=== PATIENT | female | born 1955 | race American Indian/Alaskan Native ===

== ENCOUNTER 2017-08-31 06:44 | Day surgery (SDC) | payer MEDICAID ==
[2017-08-31] MEDS ORDERED: NACL BACTERIOSTATIC INFILTRATI ONE (08:51)
[2017-08-31] MEDS ORDERED: ANCEF/STERILE WATER 2 GM/20 ML IV NR (09:00)
--- NOTE | 2017-08-31 09:01 | Anesthesia Day of Surgery ---
Anesthesia Day of Surgery - Day of Surgery Patient Examined: Yes Patient H&P Reviewed: Yes Patient is NPO: Yes Beta Blockers: Yes
--- NOTE | 2017-08-31 09:01 | Anesthesia Consultation ---
Anesthesia Consult and Med Hx Date of service: 08/31/17 - Airway Anesthetic Teeth Evaluation: Edentulous ROM Head & Neck: Adequate Mental/Hyoid Distance: Adequate Mallampati Class: Class III Intubation Access Assessment: Possibly Difficult - Pulmonary Exam CTA: Yes - Cardiac Exam Cardiac Exam: RRR - Pre-Operative Health Status ASA Pre-Surgery Classification: ASA4 Proposed Anesthetic Plan: General - Pulmonary Hx Smoking: Yes (18 YEARS 3 CIG PER DAY) SOB: Yes (exertional. uses albuterol) Hx Sleep Apnea: No - Cardiovascular System Hx Hypertension: Yes Hx Angina: No - Central Nervous System Hx Neuromuscular Disorder: ([place] palsy @ 17 y.o) Hx Seizures: Yes (X1 2011. no meds) Hx Psychiatric Problems: Yes (anxiety/depression) - Gastrointestinal Hx Gastroesophageal Reflux Disease: Yes (well controlled) - Endocrine Hx Renal Disease: No Hx Non-Insulin Dependent Diabetes: No - Other Systems Hx Alcohol Use: Yes (SOCIAL) Hx Cancer: Yes (h/o breast cancer. s/p b/l mastectomy) Hx Obesity: Yes (morbid) - Additional Comments Anesthesia Medical History Comments: h/o HIV, HLD. Informed consent obtained
[2017-08-31] MEDS ORDERED: DILAUDID IV PRN (09:02)
[2017-08-31 09:14] LABS: Basophils # (Auto) 0.1 K/mm3 (0.0-0.1); Basophils % (Auto) 0.7 % (0.0-1.8); Eosinophils # (Auto) 0.2 K/mm3 (0.0-0.4); Eosinophils % (Auto) 2.4 % (0.0-4.3); Lymphocytes # (Auto) 2.1 K/mm3 (1.2-5.4); Lymphocytes % (Auto) 27.6 % (13.4-35.0); Mean Corpuscular HGB Conc 33 % (30-34); Mean Corpuscular Hemoglobin 29 pg (28-32); Mean Corpuscular Volume 89 fl (79-97); Monocytes # (Auto) 0.6 K/mm3 (0.0-0.8); Monocytes % (Auto) 8.4 % (0.0-7.3); Platelet Count 302 K/mm3 (140-440); Red Blood Count 3.83 M/mm3 (3.65-5.03); Red Cell Distribution Width 15.5 % (13.2-15.2)
[2017-08-31] MEDS ORDERED: DIPRIVAN 10 MG/ML IV ONE (09:20)
[2017-08-31] MEDS ORDERED: SUBLIMAZE ONE (09:21)
[2017-08-31] MEDS ORDERED: NACL 0.9% 1000 ML 1,000 ML IV SCH (10:00)
[2017-08-31] MEDS ORDERED: NEURONTIN PO NR (10:00)
[2017-08-31] MEDS ORDERED: LOPRESSOR PO SCH (10:00)
[2017-08-31] MEDS ORDERED: PEPCID IV NR (10:00)
[2017-08-31] MEDS ORDERED: NACL 0.9% IR ONE (10:45)
[2017-08-31] MEDS ORDERED: NACL 0.9% 1000 ML 1,000 ML ONE (10:53)
--- NOTE | 2017-08-31 10:54 | Discharge Summary ---
Short Stay Discharge Plan Activity: other (Limit ADDUCTION and general use of LT Arm) Weight Bearing Status: Full Weight Bearing Diet: regular Wound: remove dressing (72hrs.), other (FRANCESCO Drains to Bulb Suction) Follow up with: ODALYS RAJAN MD [Primary Care Provider] - 6 Weeks WORK,ELKIN Rodriguez JR, MD [Staff Physician] - 7 Days
--- NOTE | 2017-08-31 10:56 | Short Stay Summary ---
Short Stay Documentation Date of service: 08/31/17 - Allergies and Medications Current Medications: Allergies lisinopril Allergy (Verified 12/28/14 08:49) Swelling Home Medications Medication Instructions Recorded Confirmed Last Taken Type Albuterol Sulfate [Ventolin HFA] 2 puff IH Q4H PRN 06/09/13 12/28/14 12/28/14 05 :00 History Atenolol [Tenormin] 100 mg PO DAILY 06/09/13 12/28/14 12/28/14 05:00 History Gabapentin 300 mg PO HS 06/09/13 12/28/14 12/27/14 13:00 History Ibuprofen 800 mg PO PRN PRN 06/09/13 12/28/14 12/21/14 History NIFEdipine [Nifedipine ER] 60 mg PO DAILY 06/09/13 12/28/14 12/27/14 13:00 History Efavirenz/Emtricitab/Tenofovir 1 each PO QDAY 06/13/13 12/28/14 12/27/14 13:00 History [Atripla Tablet] Bupropion HCl [Bupropion HCl Sr] 100 mg PO DAILY 03/22/14 12/28/14 12/27/14 13: 00 History FLUoxetine HCL [Prozac] 40 mg PO QDAY 03/22/14 12/28/14 12/27/14 13:00 History Ranitidine HCl [Ranitidine] 75 mg PO BID PRN 03/22/14 12/28/14 12/27/14 13:00 History Cephalexin [Keflex] 500 mg PO Q6H #28 capsule 12/28/14 Unknown Rx Active Medications Cefazolin Sodium (Ancef/Sterile Water 2 Gm/20 Ml) 2 gm IV PREOP NR Stop: 08/31/17 23:59 Famotidine (Pepcid) 20 mg IV PREOP NR Stop: 08/31/17 23:59 Last Admin: 08/31/17 09:42 Dose: 20 mg Gabapentin (Neurontin) 300 mg PO PREOP NR Stop: 08/31/17 23:59 Last Admin: 08/31/17 09:40 Dose: 300 mg Hydromorphone HCl (Dilaudid) 0.25 mg IV Q10MIN PRN PRN Reason: Pain, Moderate (4-6) Stop: 08/31/17 18:01 Sodium Chloride (Nacl 0.9% 1000 Ml) 1,000 mls @ 75 mls/hr IV DIRECT SHARATH Last Admin: 08/31/17 09:42 Dose: 75 mls/hr Metoprolol Tartrate (Lopressor) 100 mg PO PREOP SHARATH Stop: 08/31/17 18:00 Last Admin: 08/31/17 10:00 Dose: 100 mg - Brief post op/procedure progress note Date of procedure: 08/31/17 Pre-op diagnosis: LT Acquired Breast Deformity/Hx of Breast Cancer/HIV Post-op diagnosis: same Procedure: LT Latissimus Dorsi Myocutaneous Flap Breast Reconstruction with Silicone Gel Implant ( cc) Anesthesia: GETA Surgeon: ELKIN FARLEY JR Estimated blood loss: 50-100ml Specimen disposition: to lab Condition: stable - Disposition Condition at discharge: Good Disposition: DC-01 TO HOME OR SELFCARE Short Stay Discharge Plan Follow up with: ELKIN FARLEY JR, MD [Staff Physician] - 7 Days ODALYS RAJAN MD [Primary Care Provider] - 6 Weeks
[2017-08-31] MEDS ORDERED: ePHEDrine SULFATE ONE (11:41)
[2017-08-31] MEDS ORDERED: ZEMURON IV ONE (11:52)
[2017-08-31] MEDS ORDERED: XYLOCAINE MPF 2% ONE (11:52)
[2017-08-31] MEDS ORDERED: QUELICIN ONE (11:52)
[2017-08-31] MEDS ORDERED: ZOFRAN ONE (12:00)
[2017-08-31] MEDS ORDERED: DILAUDID ONE (12:44)
--- NOTE | 2017-08-31 16:18 | Operative Report ---
PREOPERATIVE DIAGNOSES: 1. Left acquired breast deformity. 2. History of breast cancer. 3. Cicatrix. 4. Tobacco abuse. POSTOPERATIVE DIAGNOSES: 1. Left acquired breast deformity. 2. History of breast cancer. 3. Cicatrix. 4. Tobacco abuse. PROCEDURE: 1. Tangential excisional prep of left chest greater than 100 square cm. 2. Latissimus dorsi myocutaneous flap breast reconstruction. SURGEON: Deep Roberto MD LAWN SPECIALIST: Yoni Fulton CSA. DESCRIPTION OF FINDINGS: Mastectomy, skin flap, excision sent to pathology as a specimen and tagged with one staple superiorly and 3 verena laterally. DESCRIPTION OF PROCEDURE: The patient was brought to the operating room, placed on the table in supine position. Following administration of general anesthesia, the patient was placed in right lateral decubitus position with left arm abducted at the shoulder and flexed at the elbow. The left breast and back were prepped with Betadine solution and draped in the usual sterile manner. Following preoperative skin markings for skin paddle on the back overlying the latissimus dorsi muscle the skin incisions were incised with scalpel, deepened through subcutaneous fat down to the latissimus dorsi muscle circumferentially. The latissimus dorsi muscle was divided from its origin inferiorly and posteriorly elevated in the standard manner, being careful to identify vasculature thoracodorsal vessels, which were noted to be intact with pulsatile flow by Doppler. Dissection was carried anteriorly under the skin bridge to the prior mastectomy site where skin graft scar and part of the mastectomy skin flap was circumferentially excised and sent to pathology as a specimen. The flap was gently rotated into the defect, sewn in place with interrupted 2-0 Monocryl sutures followed by verena over one 10 mm FRANCESCO drain. Donor site was closed in similar fashion using interrupted 2-0 Monocryl sutures followed by verena over two 10 mm Aaron/FRANCESCO drains, noncompressive dressing was applied. The patient tolerated the procedure well, returned to recovery room in stable condition. It was initially planned to place a silicone gel implant at the time of the latissimus flap, but due to the inability of obtaining a carboxyhemoglobin to verify the patient was not recently smoking. It was decided to be in the patient's best interest to perform placement of an implant and a stage procedure. JOB# [id number] FTW/NTS
[2017-08-31 16:51] VITALS: BP 129/76
--- NOTE | 2017-08-31 17:20 | Post Anesthesia Evaluation ---
- Post Anesthesia Evaluation Patient Participated: Yes Airway Patent: Yes Stable Respiratory Function: Yes Nausea/Vomiting: No Temp > 96.8F: Yes Pain Manageable: Yes Adequeate Hydration: Yes Anesthesia Complications: No Block Receding Appropriately: Not Applicable Patient on Ventilator: No
== END 2017-08-31 16:38 | disposition home or self-care (01) ==
LOC: OR 06:44
PROVIDERS: ATTEND Plastic Surgery
DX: N64.89 Other specified disorders of breast (principal); L90.5 Scar conditions and fibrosis of skin; J45.909 Unspecified asthma, uncomplicated; I10 Essential (primary) hypertension; K21.9 Gastro-esophageal reflux disease without esophagitis; E66.01 Morbid (severe) obesity due to excess calories; F17.210 Nicotine dependence, cigarettes, uncomplicated; F41.9 Anxiety disorder, unspecified; F32.9 Major depressive disorder, single episode, unspecified; Z68.42 Body mass index [BMI] 45.0-49.9, adult; Z90.13 Acquired absence of bilateral breasts and nipples; Z85.3 Personal history of malignant neoplasm of breast; Z88.8 Allergy status to other drugs, medicaments and biological substances
CPT/HCPCS: 19361; 36415; 85025; 88305; 93005; 93010; J0330; J0690; J1170; J2405; J2704; J3010; J7030